=== PATIENT | male | born 1995 ===

== ENCOUNTER 2022-06-14 15:02 | Emergency (ER) ==
[2022-06-14] MEDS ORDERED: Ketorolac Tromethamine 30 MG/ML VIAL ONE (17:04)
== END 2022-06-14 17:29 | disposition home or self-care (01) ==
LOC: ERS 15:02
DX: S93.421A Sprain of deltoid ligament of right ankle, initial encounter (principal); X58.XXXA Exposure to other specified factors, initial encounter
CPT/HCPCS: 96372; J1885